=== PATIENT | male | born 1950 | race Caucasian/White ===

== ENCOUNTER → 2022-01-31 08:22 | Outpatient (CLI) | payer MEDICARE, SELFPAY ==
--- NOTE | ~2022-01-31 | CT_ITS ---
EXAMINATION: CT lumbar spine wo con DATE: 01/31/2022 08:42 INDICATION: Lumbago with sciatica, R side, other chronic pain . TECHNIQUE: Computed tomography (CT) of the lumbar spine was performed without intravenous contrast. A utomated exposure control and iterative reconstruction technique were employed. The dose-length produ ct was 873.93 mGy-cm. COMPARISON: None. FINDINGS: 5 nonrib-bearing lumbar-type vertebral bodies. Pedicles intact. Normal vertebral body align ment. Vertebral body heights preserved. Moderate disc space narrowing at L1-2. Severe disc space narr owing and vacuum phenomenon at all remaining lumbar levels and T12-L1. Multilevel interspinous narrow ing. T12-L1: Mild diffuse bulge There is mild facet joint osteoarthritis. There is no neural foraminal ant nosis. There is no central canal stenosis. L1-L2: Mild diffuse bulge There is moderate facet joint osteoarthritis. There is mild bilateral neura l foraminal stenosis. There is no central canal stenosis. L2-L3: Moderate diffuse bulge. There is mild facet joint osteoarthritis. There is mild bilateral neur al foraminal stenosis. There is mild central canal stenosis. L3-L4: Moderate diffuse bulge. There is moderate facet joint osteoarthritis. There is moderate bilate ral neural foraminal stenosis. There is moderate central canal stenosis. L4-L5: Moderate diffuse bulge. There is mild facet joint osteoarthritis. There is moderate bilateral neural foraminal stenosis. There is moderate central canal stenosis. L5-S1: Moderate diffuse bulge. There is mild facet joint osteoarthritis. There is severe left and mod erate right neural foraminal stenosis. There is mild central canal stenosis. IMPRESSION: 1. Severe degenerative disc disease at L2-3 through L5-S1. 2. Severe left L5-S1 neural foraminal narrowing. Moderate bilateral neural foraminal narrowing at L3- 4 and L4-5. 3. Moderate central canal stenosis at L3-4 and L4-5. 4. Multilevel facet arthropathy and interspinous narrowing. Reviewed, dictated and finalized at location K. IMPRESSION: 1. Severe degenerative disc disease at L2-3 through L5-S1. 2. Severe left L5-S1 neural foraminal narrowing. Moderate bilateral neural fora mildred narrowing at L3-4 and L4-5. 3. Moderate central canal stenosis at L3-4 and L4-5. 4. Multilevel facet arthropathy and interspinous narrowing.
== END ==
PROVIDERS: PCP Nurse Practitioner Family; Visit Provider Nurse Practitioner Family
DX: M54.41 Lumbago with sciatica, right side (principal); G89.29 Other chronic pain; M54.42 Lumbago with sciatica, left side; M51.36 Other intervertebral disc degeneration, lumbar region; M51.37 Other intervertebral disc degeneration, lumbosacral region
CPT/HCPCS: 72131